=== PATIENT | male | born 1960 | race Caucasian/White ===

== ENCOUNTER 2024-09-17 05:25 | Day surgery (SDC) | payer MEDICARE, MEDICAID ==
[2024-09-10 14:39] LABS: BASOPHILS # (AUTO) 0.1 X10'3 (0-0.2); BASOPHILS % (AUTO) 0.7 % (0-1); EOSINOPHILS % (AUTO) 0.6 % (0-6); LYMPHOCYTES % (AUTO) 25.1 % (21-51); MEAN CORPUSCULAR HEMOGLOBIN 31.2 PG (27.0-31.0); MEAN CORPUSCULAR HGB CONC 33.1 g/dL (33.0-36.5); MEAN CORPUSCULAR VOLUME 94.4 FL (78-98); MEAN PLATELET VOLUME 7.8 FL (7.4-10.4); MONOCYTES # (AUTO) 0.5 X10'3 (0-0.9); MONOCYTES % (AUTO) 6.8 % (2-12); NEUTROPHILS # (AUTO) 5.3 X10'3 (1.8-7.7); NEUTROPHILS % (AUTO) 66.8 % (42-75); PRE OP HEMATOCRIT 44.1 % (42.0-52.0); PRE OP HEMOGLOBIN 14.6 g/dL (14.0-17.9); PRE OP PLATELET COUNT 266 X10'3 (140-440); RED BLOOD COUNT 4.67 X10'6 (4.70-6.10); RED CELL DISTRIBUTION WIDTH 14.4 % (11.5-14.5)
[2024-09-10 14:54] LABS: ALBUMIN 4.2 G/DL (3.4-5.0); ALBUMIN/GLOBULIN RATIO 1.1 (1.1-1.5); ALKALINE PHOSPHATASE 62 IU/L (46-116); BLOOD UREA NITROGEN 16 MG/DL (7-18); BUN/CREATININE RATIO 14.7 (10.0-20.0); CALCIUM 9.1 MG/DL (8.5-10.1); CHLORIDE 104 MMOL/L (99-107); CREATININE 1.09 MG/DL (0.60-1.10); PRE OP ALT 27 U/L (30-65); PRE OP ANION GAP 10 (8-16); PRE OP AST 15 U/L (10-37); PRE OP BILIRUB, TOTAL 0.7 MG/DL (0.0-1.0); PRE OP GLUCOSE 151 MG/DL (70-104); PRE OP POTASSIUM 4.5 MMOL/L (3.4-5.1); PRE OP SODIUM 140 MMOL/L (135-145); TOTAL CARBON DIOXIDE 26.2 MMOL/L (24-32); TOTAL PROTEIN 8.2 G/DL (6.4-8.2); eGFR 68 ML/MIN
[~2024-09-17] VITALS: Ht 185.4 cm; Wt 84.0 kg
[~2024-09-17 05:25] MED LIST: ARIP30TA60 PO; ASPI81TA52 PO; ATOR-2 PO; DEXL60CA18 PO; EMPA25TA PO; GABA300C PO; HYDR-3964 PO; METF-437 PO; RANO500T6 PO; SEMA1PEN3 SQ; SENN-360 PO
[2024-09-17 05:30] VITALS: BP 141/62; PULSE 46; RESP 16; TEMP 97.4; O2SAT 96
[2024-09-17] MEDS: ringers solution, lacted 1,000 ML IV SCH (05:59)
[2024-09-17] MEDS: famotidine 20mg tablet PO ONE (05:59)
[2024-09-17] MEDS ORDERED: sevoflurane 250ml liquid IH ONE (07:28)
[2024-09-17] MEDS ORDERED: fentaNYL/PF 50MCG/1 ML 2ML syringe ONE (07:32)
[2024-09-17] MEDS ORDERED: midazolam 1 mg/ML 2ml injection ONE (07:33)
[2024-09-17] MEDS ORDERED: propofol inj 20 ML IV ONE (07:33)
[2024-09-17] MEDS ORDERED: sugammadex 200mg/2ml injection IV ONE (08:10)
[2024-09-17 08:26] VITALS: BP 152/80; PULSE 115; RESP 16; O2SAT 98
[2024-09-17 08:30] VITALS: BP 126/72; PULSE 116; RESP 18; O2SAT 98
[2024-09-17] MEDS ORDERED: morphine 2 MG/ML inj. syringe IV PRN (08:35)
[2024-09-17] MEDS ORDERED: morphine 4 MG/ML inj SYRINge IV PRN (08:35)
[2024-09-17] MEDS ORDERED: meperidine/PF 100mg/ml syringe IV PRN ×3 (08:35)
[2024-09-17] MEDS ORDERED: ondansetron/PF 4mg/2ml inj IV PRN (08:35)
[2024-09-17] MEDS ORDERED: proCHLORperazine 10 MG/2 ml inj IV PRN (08:35)
[2024-09-17] MEDS ORDERED: ringers solution, lacted 1,000 ML IV SCH (08:35)
[2024-09-17 08:40] VITALS: BP 121/70; PULSE 105; RESP 15; O2SAT 93
[2024-09-17 08:50] VITALS: BP 135/69; PULSE 103; RESP 14; O2SAT 96
[2024-09-17 09:00] VITALS: BP 132/73; PULSE 100; RESP 16; O2SAT 94
== END 2024-09-17 09:16 | disposition home or self-care (01) ==
LOC: PAS 05:25
PROVIDERS: ATTEND Internal Medicine Critical Care Medicine
DX: R91.8 Other nonspecific abnormal finding of lung field (principal); C34.11 Malignant neoplasm of upper lobe, right bronchus or lung; I25.10 Atherosclerotic heart disease of native coronary artery without angina pectoris; E11.9 Type 2 diabetes mellitus without complications; J43.9 Emphysema, unspecified; K21.9 Gastro-esophageal reflux disease without esophagitis; I10 Essential (primary) hypertension; I25.2 Old myocardial infarction; E78.5 Hyperlipidemia, unspecified; F31.9 Bipolar disorder, unspecified; Z95.5 Presence of coronary angioplasty implant and graft; Z98.890 Other specified postprocedural states; Z87.891 Personal history of nicotine dependence; Z79.899 Other long term (current) drug therapy
CPT/HCPCS: 31627; 31628; 31653; 36415; 71250; 80053; 82948; 85025; 87015; 87070; 87116; 87206; 93005; A4615; A4618; J2250; J2704; J3010; J3490; J7120; Z7506; Z7512; Z7610; 31624; 31625; 31626